=== PATIENT | female | born 1975 | race Caucasian/White ===

== ENCOUNTER 2019-10-04 12:12 | Emergency (ER) | payer BC ==
[2019-10-04 12:16] VITALS: TEMP 98.1; BMI 34.6
--- NOTE | 2019-10-04 12:20 | PDOC ---
History of Present Illness - General Chief Complaint: Cold Symptoms Stated Complaint: FEVER,CHILLS,COUGH,ABD PAIN Time Seen by Provider: 10/04/19 12:18 - History of Present Illness Initial Comments: 10/04/19 13:42 44yo female with no pmhx presents ambulatory from home c/o fevers and chills since yesterday. States she had epigastric pain and was seen at urgent care on the 26 of september. Pt states on friday she developed a sore throat and dry cough. No rhinorrhea. 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 States two of her coworkers had covid back in June, but noone else since. States she returned to work 3d per week last week. Pt denies cp/sob. Denies n/v/d. No dysuria. No back pain. Pt denies ear pain. No other complaints. Pshx: hysterectomy All: seafood Past History - Medical History Allergies/Adverse Reactions: Allergies Allergy/AdvReac Type Severity Reaction Status Date / Time No Known Drug Allergies Allergy Verified 10/04/19 13:46 SEAFOOD Allergy Uncoded 10/04/19 12:13 Home Medications: Ambulatory Orders NK [No Known Home Medication] 10/04/19 CVA: No COPD: No CHF: No - Surgical History Cholecystectomy: Yes - Psycho-Social/Smoking History Smoking History: Never smoked - Substance Abuse Hx (Audit-C & DAST Scrn) How often the patient has a drink containing alcohol: Never Score: In Men: 4 or > Positive; In Women: 3 or > Positive: 0 Screen Result (Pos requires Nsg. Audit-10AR): Negative In the last yr the pt used illegal drug/Rx for NonMed reason: No Score: Yes response is considered Positive: 0 Screen Result (Positive result requires Nsg. DAST-10): Negative Review of Systems - Review of Systems Able to Perform ROS?: Yes Is the patient limited Romanian proficient: No Constitutional: Yes: Chills, Fever HEENTM: Yes: Throat Pain. No: Eye Pain, Nose Congestion Respiratory: Yes: Cough. No: Shortness of Breath, Productive cough Cardiac (ROS): No: Chest Pain ABD/GI: Yes: Other (epigastric abd pain). No: Diarrhea, Nausea, Vomiting : No: Burning, Dysuria Musculoskeletal: No: Back Pain Integumentary: No: Rash Neurological: No: Headache, Numbness, Paresthesia, Tingling All Other Systems: Reviewed and Negative *Physical Exam - Vital Signs Last Vital Signs Temp Pulse Resp BP Pulse Ox 98.1 F 76 18 155/90 100 10/04/19 12:13 10/04/19 12:13 10/04/19 12:13 10/04/19 12:13 10/04/19 12:13 - Physical Exam General Appearance: Yes: Nourished, Appropriately Dressed. No: Apparent Distress HEENT: positive: EOMI, FABIAN, Normal Voice, Pharyngeal Erythema, Tonsillar Exudate, Tonsillar Erythema Neck: positive: Supple. negative: Tender midline Respiratory/Chest: positive: Lungs Clear, Normal Breath Sounds. negative: Respiratory Distress Cardiovascular: positive: Regular Rhythm, Regular Rate, S1, S2. negative: Edema Gastrointestinal/Abdominal: positive: Soft. negative: Guarding, Rebound, Tenderness Musculoskeletal: positive: Normal Inspection. negative: CVA Tenderness Extremity: positive: Normal Capillary Refill, Normal Inspection. negative: Swelling, Calf Tenderness Integumentary: positive: Normal Color, Dry, Warm Neurologic: positive: Fully Oriented, Alert, Normal Mood/Affect, Other (ambulatory in the ER with a steady gait) Heart Score/ECG Review - ECG Intrepretation Comment:: 10/04/19 14:05 sinus at 60, nl axis, t wave inversions III which are nonspecific, no acute st/t wave findings ED Treatment Course - LABORATORY CBC & Chemistry Diagram: 10/04/19 13:34 10/04/19 13:34 Medical Decision Making - Medical Decision Making 10/04/19 13:50 a/p: 44yo female with no signif pmhx with sore throat, cough, epigastric abd pain -concern for strep throat given L sided posterior pharynx/tonsillar exudates -subjective fevers, last tylenol was 8am today -given work environment, will send covid swab -will monitor and reassess -ivf and tylenol for pain/achy feeling/pepcid for epigastric pain, though suspect epigastric pain from poss strep throat 10/04/19 15:44 cxr clear trop neg strep neg labs reviewed covid pending pt still c/o epigastric discomfort, no ruq ttp will give maalox and re-eval 10/04/19 16:06 discussed labs and imaging trop neg cxr clear discussed viral illness vs covid discussed strep swab is pending culture, but rapid was neg discussed covid result are pending discussed quarantine at home pt asked if symptoms could be biliary or renal - no n/v/d with eating, no epigastric or ruq ttp, neg murphys, no cva ttp or urinary symptoms discussed symptoms of both biliary or renal colic discussed reasons to follow up and all reasons to return tot he ER answered all quesitons stable for dc to home 10/04/19 16:08 discussed buying a thermometer to measure temp at home to see if feeling hot and cold is actually a fever discussed staying away from work until covid test results discussed quarantine at home Discharge - Discharge Information Problems reviewed: Yes Clinical Impression/Diagnosis: Suspected 2019 novel coronavirus infection, Viral syndrome Condition: Stable Disposition: HOME - Admission No - Follow up/Referral Referrals: Micheal Noland MD [Staff Physician] - - Patient Discharge Instructions Patient Printed Discharge Instructions: [facility]-Coronavirus Instructions, [facility] COVID-19 Isolation Protocol, DI for Viral Syndrome Additional Instructions: Please drink plenty of fluids. Please return to the ER with any further concerns or complaints. Please buy a thermometer and check your temperature at home. You may take tylenol or motrin as needed for a fever greater than 100.4 degrees F or higher. Your strep culture is pending and your covid test is pending. Please quarantine until these result. Please also follow up with you PMD. - Post Discharge Activity Work/Back to School Note: Back to Work
[2019-10-04] MEDS ORDERED: SODIUM CHLORIDE 0.9% 1000 ML INFUS.BAG IV ONE (12:44)
[2019-10-04] MEDS ORDERED: FAMOTIDINE 20 MG/50 ML IVPB 20 MG/50 ML MG IVPB ONE ×2 (12:44→14:04)
[2019-10-04] MEDS ORDERED: ACETAMINOPHEN 1000 MG/100 ML VIAL (NON FORMULARY) IVPB ONE (12:44)
[2019-10-04 14:07] LABS: ALBUMIN 3.5 g/dl (3.4-5.0); BASO % 0.8 % (0-2.0); BILIRUBIN,TOTAL 0.7 mg/dl (0.2-1); CREATININE 0.6 mg/dl (0.55-1.3); EOS % 1.5 % (0-4.5); HEMATOCRIT 36.6 % (32.4-45.2); HEMOGLOBIN 12.5 GM/dl (10.7-15.3); LYMPH % 24.2 % (8-40); MCH 29.2 pg (25.7-33.7); MCHC 34.2 g/dl (32.0-36.0); MEAN CELL VOLUME 85.4 fl (80-96); MEAN PLT VOLUME 9.3 fl (7.5-11.1); MONO % 14.7 % (3.8-10.2); NEUT % 58.8 % (42.8-82.8); PLATELET COUNT 183 K/MM3 (134-434); POTASSIUM 3.6 mmol/L (3.5-5.1); RBC 4.29 M/mm3 (3.60-5.2); RDW 12.4 % (11.6-15.6); TOT PROT 6.7 g/dl (6.4-8.2); WHITE BLOOD COUNT 3.6 K/mm3 (4.0-10.8)
--- NOTE | 2019-10-04 14:15 | EKG ---
Test Reason : Blood Pressure : / mmHG Vent. Rate : 060 BPM Atrial Rate : 060 BPM P-R Int : 178 ms QRS Dur : 094 ms QT Int : 412 ms P-R-T Axes : 038 -05 008 degrees QTc Int : 412 ms NORMAL SINUS RHYTHM NORMAL ECG NO PREVIOUS ECGS AVAILABLE Confirmed by GIGI COLLAZO MD ([id number]) on 10/04/2019 2:15:06 PM Referred By: MD HEBERT Confirmed By:GIGI COLLZAO MD
[2019-10-04 14:18] LABS: THROAT:GRP A STREP ANTIGEN Negative (Negative)
[2019-10-04] MEDS ORDERED: MAG HYDROX/AL HYDROX/SIMETH 30 ML UNIT-DOSE CUP PO ONE (14:36)
[2019-10-04] MEDS ORDERED: MAG HYDROX/AL HYDROX/SIMETH 30 ML UNIT-DOSE CUP ONE (14:52)
[2019-10-04 16:32] VITALS: BP 145/84; PULSE 60
== END 2019-10-04 16:45 | disposition home or self-care (01) ==
LOC: FER 12:12
PROC: 3E033GC Introduction of Other Therapeutic Substance into Peripheral Vein, Percutaneous Approach (ICD-10-PCS; principal; 2019-10-04)
DX: B34.9 Viral infection, unspecified (principal)
CPT/HCPCS: 36415; 71045-TC-FY; 80053; 82550; 82553; 84484; 85025; 87070; 87880; 93005; 99285-25; J0131; U0003